=== PATIENT | male | born 1945 | race Caucasian/White ===

== ENCOUNTER 2018-12-23 17:58 | Inpatient (IN) | payer OTHER ==
[2018-12-24] MEDS: PIPER-TAZO 3.375 GM IV (PMX) 100 ML IVPB (00:15)
[2018-12-24 00:16] LABS: ADD MAN DIFF? NO
[2018-12-24 00:17] LABS: BASOPHIL # 0.1 10^3/ul (0.0-0.1); BASOPHILS % 0.6 % (0.0-2.0); EOSINOPHILS % 12.3 % (0.0-7.0); HEMOGLOBIN 12.1 g/dl (14.0-18.0); LYMPHOCYTES # 2.1 10^3/ul (0.8-2.9); LYMPHOCYTES % 25.1 % (15.0-51.0); MEAN CORPUSCULAR HEMOGLOBIN 26.8 pg (29.0-33.0); MEAN CORPUSCULAR HGB CONC 32.7 g/dl (32.0-37.0); MEAN PLATELET VOLUME 10.8 fl (7.4-10.4); MONOCYTE # 0.6 10^3/ul (0.3-0.9); MONOCYTES % 6.6 % (0.0-11.0); NEUTROPHIL # 4.6 10^3/ul (1.6-7.5); PLATELET COUNT 176 10^3/UL (140-415); RED BLOOD COUNT 4.51 10^6/ul (4.70-6.10); RED CELL DISTRIBUTION WIDTH 13.2 % (11.5-14.5)
[2018-12-24 00:17] LABS: WHITE BLOOD COUNT 8.4 10^3/ul (4.8-10.8)
[2018-12-24] MEDS: VANCOMYCIN 1 GM (PMX) 250 ML IVPB (00:40)
[2018-12-24 00:45] LABS: INR 0.94; PROTIME 12.7 Sec (11.9-14.9)
[2018-12-24 01:02] LABS: ALANINE AMINOTRANSFERASE 22 IU/L (13-69); ALBUMIN 4.3 g/dl (3.3-4.9); ALBUMIN/GLOBULIN RATIO 1.43; ALKALINE PHOSPHATASE 80 IU/L (42-121); ANION GAP 13 (5-13); ASPARTATE AMINO TRANSFERASE 25 IU/L (15-46); BILIRUBIN,INDIRECT 0.2 mg/dl (0-1.1); BILIRUBIN,TOTAL 0.2 mg/dl (0.2-1.3); BLOOD UREA NITROGEN 10 mg/dl (7-20); CALCIUM 9.3 mg/dl (8.4-10.2); CARBON DIOXIDE 23 mmol/L (21-31); CHLORIDE 100 mmol/L (97-110); CREATININE 0.66 mg/dl (0.61-1.24); GLUCOSE 164 mg/dl (70-220); POTASSIUM 4.1 mmol/L (3.5-5.1); SODIUM 136 mmol/L (135-144); TOTAL PROTEIN 7.3 g/dl (6.1-8.1)
[2018-12-24] MEDS ORDERED: ONDANSETRON 4 MG INJ IV ×2 (02:00→04:00)
[2018-12-24] MEDS ORDERED: ACETAMINOPHEN 325 MG TAB PO (02:00)
[2018-12-24] MEDS: morphine 4 MG/ML VIAL IV (02:43)
[2018-12-24] MEDS ORDERED: NACL 0.9% 3 ML SYG IV (04:00)
[2018-12-24] MEDS ORDERED: DEXTROSE 50% 50 ML SYRINGE IV ×2 (04:00)
[2018-12-24] MEDS ORDERED: GLUCOSE GEL 15 GRAM TUBE PO ×2 (04:00)
[2018-12-24] MEDS ORDERED: GLUCAGON 1 MG INJ IM (04:00)
[2018-12-24] MEDS ORDERED: GLUCOSE GEL 15 GRAM TUBE BUCCAL (04:00)
[2018-12-24] MEDS ORDERED: PENDING SANTYL ORDER FOR WOUND CARE XX (05:30)
[2018-12-24 06:39] LABS: ADD MAN DIFF? NO
[2018-12-24 06:44] LABS: WHITE BLOOD COUNT 8.2 10^3/ul (4.8-10.8)
[2018-12-24 06:44] LABS: BASOPHILS % 0.5 % (0.0-2.0); EOSINOPHILS # 0.9 10^3/ul (0.0-0.5); EOSINOPHILS % 11.1 % (0.0-7.0); HEMATOCRIT 38.5 % (42.0-52.0); HEMOGLOBIN 12.5 g/dl (14.0-18.0); LYMPHOCYTES # 1.8 10^3/ul (0.8-2.9); LYMPHOCYTES % 21.4 % (15.0-51.0); MEAN CORPUSCULAR HEMOGLOBIN 26.6 pg (29.0-33.0); MEAN CORPUSCULAR HGB CONC 32.5 g/dl (32.0-37.0); MEAN CORPUSCULAR VOLUME 81.9 fl (82.0-101.0); MEAN PLATELET VOLUME 11.3 fl (7.4-10.4); MONOCYTE # 0.5 10^3/ul (0.3-0.9); MONOCYTES % 6.4 % (0.0-11.0); NEUTROPHILS % 60.2 % (39.0-77.0); PLATELET COUNT 190 10^3/UL (140-415); RED CELL DISTRIBUTION WIDTH 13.3 % (11.5-14.5)
[2018-12-24 07:02] LABS: ALANINE AMINOTRANSFERASE 20 IU/L (13-69); ALBUMIN 4.1 g/dl (3.3-4.9); ALBUMIN/GLOBULIN RATIO 1.41; ALKALINE PHOSPHATASE 78 IU/L (42-121); ANION GAP 11 (5-13); ASPARTATE AMINO TRANSFERASE 21 IU/L (15-46); BILIRUBIN,INDIRECT 0.2 mg/dl (0-1.1); BILIRUBIN,TOTAL 0.2 mg/dl (0.2-1.3); BLOOD UREA NITROGEN 10 mg/dl (7-20); CALCIUM 9.5 mg/dl (8.4-10.2); CARBON DIOXIDE 25 mmol/L (21-31); CHLORIDE 106 mmol/L (97-110); CHOL/HDL RATIO 2.2 RATIO; CHOLESTEROL 71 mg/dl (100-200); CREATININE 0.63 mg/dl (0.61-1.24); GLUCOSE 67 mg/dl (70-220); HDL CHOLESTEROL 32 mg/dl (31-75); LDL CHOLESTEROL,CALCULATED 17 mg/dl; MAGNESIUM 1.9 mg/dl (1.7-2.5); PHOSPHORUS 4.3 mg/dl (2.5-4.9); POTASSIUM 4.2 mmol/L (3.5-5.1); SODIUM 142 mmol/L (135-144); TRIGLYCERIDES 111 mg/dl (0-149)
[2018-12-24 07:23] LABS: HEMOGLOBIN A1C 6.7 % (0-5.9)
[2018-12-24] MEDS: INSULIN ASPART [NOVOLOG] 3 ML PEN SC ×4 (08:00→20:29)
[2018-12-24] MEDS: HEPARIN 5,000 UNIT/1 ML VIAL SC ×2 (08:09→20:29)
[2018-12-24] MEDS: HYDROCODONE/APAP (5/325) TAB PO ×2 (17:51→22:01)
[2018-12-24] MEDS ORDERED: ATORVASTATIN 20 MG TAB (19:50)
[2018-12-24] MEDS: INSULIN GLARGINE [LANTus] (100 UNITS/ML) SYG SC (20:29)
[2018-12-24] MEDS: ATORVASTATIN 20 MG TAB PO (20:30)
[2018-12-25] MEDS: ACCU-CHEK XX (02:15)
[2018-12-25] MEDS: ACETAMINOPHEN 325 MG TAB PO ×3 (02:16→15:31)
[2018-12-25] MEDS: HYDROCODONE/APAP (5/325) TAB PO ×3 (05:19→20:11)
[2018-12-25 06:20] LABS: ADD MAN DIFF? NO
[2018-12-25 06:26] LABS: WHITE BLOOD COUNT 6.5 10^3/ul (4.8-10.8)
[2018-12-25 06:26] LABS: BASOPHILS % 0.6 % (0.0-2.0); EOSINOPHILS # 0.9 10^3/ul (0.0-0.5); HEMATOCRIT 35.9 % (42.0-52.0); HEMOGLOBIN 11.9 g/dl (14.0-18.0); LYMPHOCYTES # 2.2 10^3/ul (0.8-2.9); MEAN CORPUSCULAR HGB CONC 33.1 g/dl (32.0-37.0); MEAN CORPUSCULAR VOLUME 81.4 fl (82.0-101.0); MEAN PLATELET VOLUME 11.4 fl (7.4-10.4); MONOCYTE # 0.6 10^3/ul (0.3-0.9); MONOCYTES % 8.6 % (0.0-11.0); NEUTROPHIL # 2.8 10^3/ul (1.6-7.5); NEUTROPHILS % 43.3 % (39.0-77.0); PLATELET COUNT 188 10^3/UL (140-415); RED BLOOD COUNT 4.41 10^6/ul (4.70-6.10); RED CELL DISTRIBUTION WIDTH 13.2 % (11.5-14.5)
[2018-12-25 06:55] LABS: ANION GAP 11 (5-13); BLOOD UREA NITROGEN 11 mg/dl (7-20); CALCIUM 9.4 mg/dl (8.4-10.2); CARBON DIOXIDE 25 mmol/L (21-31); CHLORIDE 102 mmol/L (97-110); CREATININE 0.63 mg/dl (0.61-1.24); GLUCOSE 94 mg/dl (70-220); MAGNESIUM 1.9 mg/dl (1.7-2.5); PHOSPHORUS 5.3 mg/dl (2.5-4.9); POTASSIUM 4.3 mmol/L (3.5-5.1); SODIUM 138 mmol/L (135-144)
[2018-12-25] MEDS: INSULIN ASPART [NOVOLOG] 3 ML PEN SC ×4 (08:00→20:35)
[2018-12-25] MEDS: HEPARIN 5,000 UNIT/1 ML VIAL SC ×2 (08:52→20:36)
[2018-12-25] MEDS ORDERED: VANCOMYCIN IV PER PHARMACY XX (17:00)
[2018-12-25] MEDS: PIPER-TAZO 3.375 GM IV (PMX) 100 ML IVPB ×2 (17:17→23:32)
[2018-12-25] MEDS: VANCOMYCIN HCL 1.25 GM in SOD CHLORIDE 0.9% 250 ML IVPB (18:34)
[2018-12-25] MEDS: INSULIN GLARGINE [LANTus] (100 UNITS/ML) SYG SC (20:35)
[2018-12-25] MEDS: ATORVASTATIN 20 MG TAB PO (20:39)
[2018-12-26] MEDS: ACCU-CHEK XX (02:00)
[2018-12-26] MEDS: HYDROCODONE/APAP (5/325) TAB PO (03:59)
[2018-12-26] MEDS: PIPER-TAZO 3.375 GM IV (PMX) 100 ML IVPB ×2 (05:57→12:24)
[2018-12-26 06:27] LABS: ADD MAN DIFF? NO
[2018-12-26] MEDS: morphine 4 MG/ML VIAL IV (06:29)
[2018-12-26 06:41] LABS: BASOPHIL # 0.1 10^3/ul (0.0-0.1); BASOPHILS % 0.7 % (0.0-2.0); EOSINOPHILS # 0.9 10^3/ul (0.0-0.5); EOSINOPHILS % 12.1 % (0.0-7.0); HEMATOCRIT 36.9 % (42.0-52.0); LYMPHOCYTES # 2.4 10^3/ul (0.8-2.9); LYMPHOCYTES % 34.5 % (15.0-51.0); MEAN CORPUSCULAR HEMOGLOBIN 26.7 pg (29.0-33.0); MEAN CORPUSCULAR HGB CONC 32.5 g/dl (32.0-37.0); MEAN CORPUSCULAR VOLUME 82.2 fl (82.0-101.0); MEAN PLATELET VOLUME 10.9 fl (7.4-10.4); MONOCYTE # 0.6 10^3/ul (0.3-0.9); MONOCYTES % 8.6 % (0.0-11.0); NEUTROPHIL # 3.1 10^3/ul (1.6-7.5); PLATELET COUNT 186 10^3/UL (140-415); RED BLOOD COUNT 4.49 10^6/ul (4.70-6.10); RED CELL DISTRIBUTION WIDTH 13.2 % (11.5-14.5)
[2018-12-26 07:10] LABS: PHOSPHORUS 5.2 mg/dl (2.5-4.9)
[2018-12-26 07:15] LABS: ANION GAP 8 (5-13); BLOOD UREA NITROGEN 11 mg/dl (7-20); CALCIUM 9.5 mg/dl (8.4-10.2); CARBON DIOXIDE 27 mmol/L (21-31); CHLORIDE 106 mmol/L (97-110); CREATININE 0.75 mg/dl (0.61-1.24); GLUCOSE 127 mg/dl (70-220); POTASSIUM 4.7 mmol/L (3.5-5.1); SODIUM 141 mmol/L (135-144)
[2018-12-26] MEDS: INSULIN ASPART [NOVOLOG] 3 ML PEN SC ×2 (08:00→12:28)
[2018-12-26] MEDS: HEPARIN 5,000 UNIT/1 ML VIAL SC (08:33)
[2018-12-26] MEDS ORDERED: VANCOMYCIN 1 GM 250 ML IVPB (12:00)
== END 2018-12-26 14:26 | disposition home or self-care (01) | DRG 300 ==
LOC: PP2 12-24 02:00 → E/R 17:58
DX: E11.52 Type 2 diabetes mellitus with diabetic peripheral angiopathy with gangrene (principal); I70.261 Atherosclerosis of native arteries of extremities with gangrene, right leg; L03.031 Cellulitis of right toe; I10 Essential (primary) hypertension; E78.5 Hyperlipidemia, unspecified; Z79.4 Long term (current) use of insulin
CPT/HCPCS: 36415; 73718; 80048; 80053; 80061; 82962; 83036; 83735; 84100; 85025; 85610; 85730; 87040-91; 96374; 96375; 99285-25

== ENCOUNTER 2019-01-01 23:40 | Inpatient (IN) | payer OTHER ==
[2019-01-02 02:11] LABS: ADD MAN DIFF? NO
[2019-01-02 02:13] LABS: WHITE BLOOD COUNT 9.2 10^3/ul (4.8-10.8)
[2019-01-02 02:13] LABS: BASOPHILS % 0.3 % (0.0-2.0); EOSINOPHILS # 0.6 10^3/ul (0.0-0.5); EOSINOPHILS % 6.4 % (0.0-7.0); HEMATOCRIT 35.6 % (42.0-52.0); HEMOGLOBIN 11.8 g/dl (14.0-18.0); LYMPHOCYTES % 21.2 % (15.0-51.0); MEAN CORPUSCULAR HEMOGLOBIN 26.8 pg (29.0-33.0); MEAN CORPUSCULAR HGB CONC 33.1 g/dl (32.0-37.0); MEAN CORPUSCULAR VOLUME 80.7 fl (82.0-101.0); MEAN PLATELET VOLUME 10.3 fl (7.4-10.4); MONOCYTE # 0.7 10^3/ul (0.3-0.9); MONOCYTES % 7.2 % (0.0-11.0); NEUTROPHIL # 5.9 10^3/ul (1.6-7.5); NEUTROPHILS % 64.5 % (39.0-77.0); PLATELET COUNT 169 10^3/UL (140-415); RED BLOOD COUNT 4.41 10^6/ul (4.70-6.10); RED CELL DISTRIBUTION WIDTH 12.9 % (11.5-14.5)
[2019-01-02] MEDS: HYDROmorphONE 1 MG/ML SYG IV (02:15)
[2019-01-02 02:33] LABS: ANION GAP 12 (5-13); BLOOD UREA NITROGEN 11 mg/dl (7-20); CALCIUM 9.4 mg/dl (8.4-10.2); CARBON DIOXIDE 22 mmol/L (21-31); CHLORIDE 102 mmol/L (97-110); CREATININE 0.81 mg/dl (0.61-1.24); GLUCOSE 133 mg/dl (70-220); POTASSIUM 4.6 mmol/L (3.5-5.1); SODIUM 136 mmol/L (135-144)
[2019-01-02 02:34] LABS: INR 0.99; PROTIME 13.2 Sec (11.9-14.9)
[2019-01-02 02:35] LABS: PARTIAL THROMBOPLASTIN TIME 25.6 Sec (23.0-35.0)
[2019-01-02] MEDS: SOD CHLORIDE 0.9% 100 ML (03:41)
[2019-01-02] MEDS: IOHEXOL 100 ML (03:41)
[2019-01-02] MEDS ORDERED: ACETAMINOPHEN 325 MG TAB PO (05:30)
[2019-01-02] MEDS ORDERED: ONDANSETRON 4 MG INJ IV ×2 (05:30→07:00)
[2019-01-02] MEDS ORDERED: NACL 0.9% 3 ML SYG IV (07:00)
[2019-01-02] MEDS ORDERED: VANCOMYCIN IV PER PHARMACY XX (07:00)
[2019-01-02] MEDS ORDERED: DEXTROSE 50% 50 ML SYRINGE IV ×2 (08:00)
[2019-01-02] MEDS ORDERED: GLUCOSE GEL 15 GRAM TUBE PO ×2 (08:00)
[2019-01-02] MEDS ORDERED: GLUCAGON 1 MG INJ IM (08:00)
[2019-01-02] MEDS ORDERED: GLUCOSE GEL 15 GRAM TUBE BUCCAL (08:00)
[2019-01-02] MEDS: KETOROLAC 30 MG INJ IV ×2 (09:33→15:26)
[2019-01-02] MEDS: BENAZEPRIL 20 MG TAB PO (09:35)
[2019-01-02] MEDS: HYDROCODONE/APAP (5/325) TAB PO ×2 (09:36→15:27)
[2019-01-02] MEDS: ASPIRIN 81 MG TAB PO (09:37)
[2019-01-02] MEDS: LINAGLIPTIN 5 MG TABLET PO (09:37)
[2019-01-02] MEDS: metFORMIN 500 MG TAB PO ×2 (09:37→17:56)
[2019-01-02] MEDS: CLOPIDOGREL 75 MG TAB PO (09:38)
[2019-01-02] MEDS: HEPARIN 5,000 UNIT/1 ML VIAL SC ×2 (09:39→21:05)
[2019-01-02 10:36] LABS: HEPATITIS B SURFACE ANTIGEN NEGATIVE (NEGATIVE)
[2019-01-02] MEDS: VANCOMYCIN HCL 1.25 GM in SOD CHLORIDE 0.9% 250 ML IVPB (10:36)
[2019-01-02 10:54] LABS: HEPATITIS C VIRAL ANTIBODY NEGATIVE (NEGATIVE)
[2019-01-02] MEDS: CILOSTAZOL 100 MG TAB PO ×2 (11:53→21:03)
[2019-01-02] MEDS: PENTOXIFYLLINE (SR) 400 MG TAB PO ×2 (13:51→21:03)
[2019-01-02] MEDS: ACCU-CHEK XX ×3 (13:52→20:55)
[2019-01-02 15:23] LABS: RAPID PLASMA REAGIN NONREACTIVE (NR)
[2019-01-02] MEDS ORDERED: ATORVASTATIN 20 MG TAB PO (21:00)
[2019-01-02] MEDS: ACETYLCYSTEINE 600 MG CAP PO (21:02)
[2019-01-02] MEDS: ATORVASTATIN 80 MG TAB PO (21:02)
[2019-01-02] MEDS: VANCOMYCIN 500 MG (PMX) 100 ML IVPB (23:09)
[2019-01-03 05:10] LABS: ADD MAN DIFF? NO
[2019-01-03 05:14] LABS: WHITE BLOOD COUNT 8.4 10^3/ul (4.8-10.8)
[2019-01-03 05:14] LABS: BASOPHILS % 0.5 % (0.0-2.0); EOSINOPHILS # 0.8 10^3/ul (0.0-0.5); HEMATOCRIT 32.9 % (42.0-52.0); HEMOGLOBIN 10.9 g/dl (14.0-18.0); LYMPHOCYTES # 1.9 10^3/ul (0.8-2.9); LYMPHOCYTES % 22.2 % (15.0-51.0); MEAN CORPUSCULAR HEMOGLOBIN 26.7 pg (29.0-33.0); MEAN CORPUSCULAR HGB CONC 33.1 g/dl (32.0-37.0); MEAN CORPUSCULAR VOLUME 80.4 fl (82.0-101.0); MONOCYTE # 0.6 10^3/ul (0.3-0.9); MONOCYTES % 6.6 % (0.0-11.0); NEUTROPHIL # 5.1 10^3/ul (1.6-7.5); NEUTROPHILS % 61.2 % (39.0-77.0); PLATELET COUNT 160 10^3/UL (140-415); RED BLOOD COUNT 4.09 10^6/ul (4.70-6.10); RED CELL DISTRIBUTION WIDTH 13.1 % (11.5-14.5)
[2019-01-03 06:30] LABS: ALANINE AMINOTRANSFERASE 27 IU/L (13-69); ALBUMIN 3.3 g/dl (3.3-4.9); ALBUMIN/GLOBULIN RATIO 1.13; ALKALINE PHOSPHATASE 72 IU/L (42-121); ANION GAP 11 (5-13); ASPARTATE AMINO TRANSFERASE 21 IU/L (15-46); BILIRUBIN,INDIRECT 0.3 mg/dl (0-1.1); BILIRUBIN,TOTAL 0.3 mg/dl (0.2-1.3); BLOOD UREA NITROGEN 14 mg/dl (7-20); CALCIUM 8.9 mg/dl (8.4-10.2); CARBON DIOXIDE 21 mmol/L (21-31); CHLORIDE 100 mmol/L (97-110); CREATININE 0.66 mg/dl (0.61-1.24); GLUCOSE 132 mg/dl (70-220); MAGNESIUM 1.5 mg/dl (1.7-2.5); PHOSPHORUS 4.4 mg/dl (2.5-4.9); POTASSIUM 4.3 mmol/L (3.5-5.1); SODIUM 132 mmol/L (135-144); TOTAL PROTEIN 6.2 g/dl (6.1-8.1)
[2019-01-03] MEDS: VANCOMYCIN 500 MG (PMX) 100 ML IVPB ×2 (07:31→19:03)
[2019-01-03 07:46] LABS: HEMOGLOBIN A1C 6.7 % (0-5.9)
[2019-01-03] MEDS: ACCU-CHEK XX ×6 (08:36→20:58)
[2019-01-03] MEDS: HEPARIN 5,000 UNIT/1 ML VIAL SC ×2 (08:38→21:02)
[2019-01-03] MEDS: metFORMIN 500 MG TAB PO (08:39)
[2019-01-03] MEDS: CLOPIDOGREL 75 MG TAB PO (08:41)
[2019-01-03] MEDS: ACETYLCYSTEINE 600 MG CAP PO ×2 (08:41→20:59)
[2019-01-03] MEDS: PENTOXIFYLLINE (SR) 400 MG TAB PO ×3 (08:42→20:59)
[2019-01-03] MEDS: CILOSTAZOL 100 MG TAB PO ×2 (08:42→20:59)
[2019-01-03] MEDS: ASPIRIN 81 MG TAB PO (08:42)
[2019-01-03] MEDS: BENAZEPRIL 20 MG TAB PO (08:43)
[2019-01-03] MEDS: LINAGLIPTIN 5 MG TABLET PO (08:43)
[2019-01-03] MEDS: ACETAMINOPHEN 325 MG TAB PO (09:00)
[2019-01-03] MEDS: DEXTROSE 5%-0.45% NACL 1,000 ML IV ×2 (15:30→23:27)
[2019-01-03] MEDS: ATORVASTATIN 80 MG TAB PO (20:59)
[2019-01-03] MEDS: DOCUSATE SODIUM 100 MG CAP PO (20:59)
[2019-01-03] MEDS: HYDROCODONE/APAP (5/325) TAB PO (21:00)
[2019-01-03] MEDS: morphine 4 MG/ML VIAL IV (23:32)
[2019-01-04] MEDS: DEXTROSE 5%-0.45% NACL 1,000 ML IV ×3 (01:30→20:13)
[2019-01-04] MEDS: VANCOMYCIN 500 MG (PMX) 100 ML IVPB (08:01)
[2019-01-04] MEDS: ACCU-CHEK XX ×6 (08:02→20:02)
[2019-01-04] MEDS: ASPIRIN 81 MG TAB PO (08:04)
[2019-01-04] MEDS: HEPARIN 5,000 UNIT/1 ML VIAL SC ×2 (08:05→20:13)
[2019-01-04] MEDS: CLOPIDOGREL 75 MG TAB PO (08:05)
[2019-01-04] MEDS: PENTOXIFYLLINE (SR) 400 MG TAB PO ×3 (09:00→20:13)
[2019-01-04] MEDS: DOCUSATE SODIUM 100 MG CAP PO ×2 (09:00→20:13)
[2019-01-04] MEDS: ACETYLCYSTEINE 600 MG CAP PO ×2 (09:00→20:13)
[2019-01-04] MEDS: CILOSTAZOL 100 MG TAB PO ×2 (10:52→20:13)
[2019-01-04] MEDS ORDERED: LIDOCAINE 1% (MDV) 20 ML INJ (11:13)
[2019-01-04] MEDS ORDERED: IODIXANOL LOCM 100 ML BTL (11:13)
[2019-01-04] MEDS ORDERED: FENTAnyl 50 MCG/ML VIAL (11:22)
[2019-01-04] MEDS ORDERED: MIDAZOLAM 1 MG/ML 2 ML INJ (11:22)
[2019-01-04] MEDS: SOD CHLORIDE 0.9% 1,000 ML IV (12:40)
[2019-01-04] MEDS ORDERED: HEPARIN 1000 UNITS/ML 10 ML INJ (12:47)
[2019-01-04] MEDS: DAKINS 0.0125%(1/40) 473 ML SOLUTION TP (16:56)
[2019-01-04 19:05] LABS: VANCOMYCIN,TROUGH 6.6 ug/ml (10.0-20.0)
[2019-01-04] MEDS: VANCOMYCIN 1 GM (PMX) 250 ML IVPB (19:41)
[2019-01-04] MEDS: ATORVASTATIN 80 MG TAB PO (20:13)
[2019-01-05] MEDS: morphine 4 MG/ML VIAL IV ×3 (02:50→11:47)
[2019-01-05] MEDS: ACCU-CHEK XX ×4 (07:20→13:40)
[2019-01-05] MEDS: DEXTROSE 5%-0.45% NACL 1,000 ML IV (07:30)
[2019-01-05] MEDS: VANCOMYCIN 750 MG (PMX) 250 ML IVPB (08:31)
[2019-01-05] MEDS: ACETYLCYSTEINE 600 MG CAP PO (08:32)
[2019-01-05] MEDS: PENTOXIFYLLINE (SR) 400 MG TAB PO ×2 (08:32→13:05)
[2019-01-05] MEDS: ASPIRIN 81 MG TAB PO (08:32)
[2019-01-05] MEDS: CLOPIDOGREL 75 MG TAB PO (08:32)
[2019-01-05] MEDS: DAKINS 0.0125%(1/40) 473 ML SOLUTION TP (08:33)
[2019-01-05] MEDS: HEPARIN 5,000 UNIT/1 ML VIAL SC (08:39)
[2019-01-05] MEDS: DOCUSATE SODIUM 100 MG CAP PO (09:44)
[2019-01-05] MEDS: CILOSTAZOL 100 MG TAB PO (09:44)
[2019-01-05] MEDS: HYDROCODONE/APAP (5/325) TAB PO (09:45)
[2019-01-05] MEDS: INSULIN GLARGINE [LANTus] (100 UNITS/ML) SYG SC (13:04)
[2019-01-05] MEDS: INSULIN ASPART [NOVOLOG] 3 ML PEN SC (13:05)
== END 2019-01-05 17:10 | disposition home health service (06) | DRG 254 ==
LOC: E/R 23:40 → MS1 01-02 05:28
PROC: 047P3ZZ Dilation of Right Anterior Tibial Artery, Percutaneous Approach (ICD-10-PCS; principal; 2019-01-04 10:56)
PROC: 047T3ZZ Dilation of Right Peroneal Artery, Percutaneous Approach (ICD-10-PCS; 2019-01-04 10:56)
PROC: B41DYZZ Fluoroscopy of Aorta and Bilateral Lower Extremity Arteries using Other Contrast (ICD-10-PCS; 2019-01-04 10:56)
DX: E11.52 Type 2 diabetes mellitus with diabetic peripheral angiopathy with gangrene (principal); I70.228 Atherosclerosis of native arteries of extremities with rest pain, other extremity; L03.031 Cellulitis of right toe; I10 Essential (primary) hypertension; D63.8 Anemia in other chronic diseases classified elsewhere; E78.5 Hyperlipidemia, unspecified; E11.42 Type 2 diabetes mellitus with diabetic polyneuropathy; E11.621 Type 2 diabetes mellitus with foot ulcer; L97.519 Non-pressure chronic ulcer of other part of right foot with unspecified severity; Z79.4 Long term (current) use of insulin; Z79.82 Long term (current) use of aspirin
CPT/HCPCS: 36415; 73706; 75630; 80048; 80053; 80202; 82962; 83036; 83735; 84100; 85025; 85610; 85730; 86592; 86803; 87081; 87340; 96374; 99285-25

== ENCOUNTER 2019-04-10 23:40 | Inpatient (IN) | payer OTHER ==
[2019-04-11 00:11] LABS: ADD MAN DIFF? NO
[2019-04-11 00:21] LABS: WHITE BLOOD COUNT 7.9 10^3/ul (4.8-10.8)
[2019-04-11 00:21] LABS: BASOPHILS % 0.4 % (0.0-2.0); EOSINOPHILS # 1.4 10^3/ul (0.0-0.5); EOSINOPHILS % 18.3 % (0.0-7.0); HEMATOCRIT 35.3 % (42.0-52.0); HEMOGLOBIN 11.3 g/dl (14.0-18.0); LYMPHOCYTES # 2.3 10^3/ul (0.8-2.9); LYMPHOCYTES % 28.7 % (15.0-51.0); MEAN CORPUSCULAR HEMOGLOBIN 25.7 pg (29.0-33.0); MEAN CORPUSCULAR VOLUME 80.2 fl (82.0-101.0); MEAN PLATELET VOLUME 9.1 fl (7.4-10.4); MONOCYTE # 0.6 10^3/ul (0.3-0.9); MONOCYTES % 7.7 % (0.0-11.0); NEUTROPHIL # 3.5 10^3/ul (1.6-7.5); NEUTROPHILS % 44.4 % (39.0-77.0); PLATELET COUNT 196 10^3/UL (140-415); RED CELL DISTRIBUTION WIDTH 15.1 % (11.5-14.5)
[2019-04-11 00:39] LABS: ANION GAP 9 (5-13); BLOOD UREA NITROGEN 7 mg/dl (7-20); CALCIUM 9.7 mg/dl (8.4-10.2); CARBON DIOXIDE 24 mmol/L (21-31); CHLORIDE 102 mmol/L (97-110); CREATININE 0.67 mg/dl (0.61-1.24); GLUCOSE 60 mg/dl (70-220); POTASSIUM 4.1 mmol/L (3.5-5.1); SODIUM 135 mmol/L (135-144)
[2019-04-11] MEDS: morphine 4 MG/ML VIAL IV (00:39)
[2019-04-11] MEDS: ONDANSETRON 4 MG INJ IV (00:39)
[2019-04-11] MEDS: SODIUM CHLORIDE 0.9% 1L BAG IV* (00:41)
[2019-04-11] MEDS: CLINDAMYCIN 900 MG/D5W (PMX) 50 ML IVPB (00:42)
[2019-04-11 00:45] LABS: INR 1.02; PROTIME 13.5 Sec (11.9-14.9); PT RATIO 1.1
[2019-04-11 00:46] LABS: PARTIAL THROMBOPLASTIN TIME 27.2 Sec (23.0-35.0)
[2019-04-11] MEDS: CEFEPIME 2GM/50 ML (PMX) 50 ML IVPB (01:04)
[2019-04-11] MEDS: VANCOMYCIN 1 GM (PMX) 250 ML IVPB (01:27)
[2019-04-11 01:32] LABS: C-REACTIVE PROTEIN 0.7 mg/dl (0.0-0.9)
[2019-04-11 01:35] LABS: ERYTHROCYTE SEDIMENTATION RATE 7 mm/Hr (0-20)
[2019-04-11] MEDS ORDERED: ACETAMINOPHEN 325 MG TAB PO ×2 (02:00→02:30)
[2019-04-11] MEDS ORDERED: ONDANSETRON 4 MG INJ IV ×2 (02:00→02:30)
[2019-04-11] MEDS ORDERED: GLUCAGON 1 MG INJ IM (02:30)
[2019-04-11] MEDS ORDERED: DOCUSATE SODIUM 100 MG CAP PO (02:30)
[2019-04-11] MEDS ORDERED: NACL 0.9% 3 ML SYG IV (02:30)
[2019-04-11] MEDS ORDERED: GLUCOSE GEL 15 GRAM TUBE PO ×2 (02:30)
[2019-04-11] MEDS ORDERED: GLUCOSE GEL 15 GRAM TUBE BUCCAL (02:30)
[2019-04-11] MEDS ORDERED: BISACODYL (EC) 5 MG TAB PO (02:30)
[2019-04-11] MEDS ORDERED: VANCOMYCIN IV PER PHARMACY XX (02:30)
[2019-04-11] MEDS ORDERED: DEXTROSE 50% 50 ML SYRINGE IV (02:30)
[2019-04-11 02:49] LABS: LACTIC ACID 1.5 mmol/L (0.5-2.0)
[2019-04-11] MEDS: SOD CHLORIDE 0.9% 1,000 ML IV ×3 (03:29→23:31)
[2019-04-11] MEDS: morphine 2 MG INJ IV ×4 (03:33→19:52)
[2019-04-11] MEDS: INSULIN ASPART [NOVOLOG] 3 ML PEN SC ×8 (05:26→21:00)
[2019-04-11] MEDS: PIPER-TAZO 3.375 GM IV (PMX) 100 ML IVPB ×2 (05:54→12:56)
[2019-04-11] MEDS ORDERED: VANCOMYCIN 500 MG (PMX) 100 ML IVPB (06:00)
[2019-04-11 06:23] LABS: ADD MAN DIFF? NO
[2019-04-11 06:27] LABS: BASOPHILS % 0.5 % (0.0-2.0); EOSINOPHILS # 0.9 10^3/ul (0.0-0.5); EOSINOPHILS % 13.8 % (0.0-7.0); HEMATOCRIT 33.1 % (42.0-52.0); HEMOGLOBIN 10.4 g/dl (14.0-18.0); LYMPHOCYTES # 1.2 10^3/ul (0.8-2.9); LYMPHOCYTES % 18.7 % (15.0-51.0); MEAN CORPUSCULAR HEMOGLOBIN 26.1 pg (29.0-33.0); MEAN CORPUSCULAR HGB CONC 31.4 g/dl (32.0-37.0); MEAN CORPUSCULAR VOLUME 83.2 fl (82.0-101.0); MEAN PLATELET VOLUME 10.4 fl (7.4-10.4); MONOCYTE # 0.4 10^3/ul (0.3-0.9); MONOCYTES % 6.6 % (0.0-11.0); NEUTROPHIL # 3.8 10^3/ul (1.6-7.5); NEUTROPHILS % 60.1 % (39.0-77.0); PLATELET COUNT 191 10^3/UL (140-415); RED BLOOD COUNT 3.98 10^6/ul (4.70-6.10); RED CELL DISTRIBUTION WIDTH 15.2 % (11.5-14.5)
[2019-04-11 06:27] LABS: WHITE BLOOD COUNT 6.3 10^3/ul (4.8-10.8)
[2019-04-11 06:54] LABS: CHOLESTEROL 68 mg/dl (100-200)
[2019-04-11 06:54] LABS: CHOL/HDL RATIO 2.6 RATIO; HDL CHOLESTEROL 26 mg/dl (31-75); LDL CHOLESTEROL,CALCULATED 23 mg/dl; TRIGLYCERIDES 93 mg/dl (0-149)
[2019-04-11 06:56] LABS: LACTIC ACID 1.5 mmol/L (0.5-2.0)
[2019-04-11 07:00] LABS: ALANINE AMINOTRANSFERASE 23 IU/L (13-69); ALBUMIN 3.4 g/dl (3.3-4.9); ALBUMIN/GLOBULIN RATIO 1.25; ALKALINE PHOSPHATASE 68 IU/L (42-121); ANION GAP 6 (5-13); ASPARTATE AMINO TRANSFERASE 22 IU/L (15-46); BILIRUBIN,INDIRECT 0.3 mg/dl (0-1.1); BILIRUBIN,TOTAL 0.3 mg/dl (0.2-1.3); BLOOD UREA NITROGEN 7 mg/dl (7-20); CALCIUM 8.4 mg/dl (8.4-10.2); CARBON DIOXIDE 24 mmol/L (21-31); CHLORIDE 109 mmol/L (97-110); CREATININE 0.66 mg/dl (0.61-1.24); GLUCOSE 152 mg/dl (70-220); POTASSIUM 4.3 mmol/L (3.5-5.1); SODIUM 139 mmol/L (135-144); TOTAL PROTEIN 6.1 g/dl (6.1-8.1)
[2019-04-11 07:17] LABS: HEMOGLOBIN A1C 6.5 % (0-5.9)
[2019-04-11 07:18] LABS: THYROID STIMULATING HORMONE 0.981 MIU/L (0.465-4.680)
[2019-04-11 07:53] LABS: MAGNESIUM 1.6 mg/dl (1.7-2.5)
[2019-04-11] MEDS: BENAZEPRIL 20 MG TAB PO (08:53)
[2019-04-11] MEDS: DEXTROSE 50% 50 ML SYRINGE IV (09:17)
[2019-04-11] MEDS: INSULIN GLARGINE [LANTus] (100 UNITS/ML) SYG SC (10:09)
[2019-04-11] MEDS: MAGNESIUM SULFATE 2 GM/50 ML 50 ML IVPB (11:04)
[2019-04-11] MEDS: VANCOMYCIN 750 MG (PMX) 250 ML IVPB ×2 (13:22→23:32)
[2019-04-11] MEDS: PREGABALIN 50 MG CAP PO ×2 (13:32→20:09)
[2019-04-11] MEDS: hydrALAzine 20 MG INJ IV (15:33)
[2019-04-11] MEDS: HYDROCODONE/APAP (7.5/325) TAB PO (15:37)
[2019-04-11] MEDS: LEVOFLOXACIN 500MG/D5W (PMX) 100 ML IVPB (16:16)
[2019-04-11] MEDS: LACTOBACILLUS RHAMNOSUS CAP PO (20:09)
[2019-04-11] MEDS: ATORVASTATIN 20 MG TAB PO (20:09)
[2019-04-11] MEDS: POVIDONE IODINE 10% 28.4 GM OINT TOP (20:33)
[2019-04-12] MEDS: ACCU-CHEK XX (02:00)
[2019-04-12] MEDS ORDERED: ACCU-CHEK XX (02:00)
[2019-04-12 05:06] LABS: ADD MAN DIFF? NO
[2019-04-12 05:07] LABS: BASOPHILS % 0.4 % (0.0-2.0); EOSINOPHILS # 1.2 10^3/ul (0.0-0.5); EOSINOPHILS % 16.2 % (0.0-7.0); HEMATOCRIT 36.4 % (42.0-52.0); HEMOGLOBIN 11.6 g/dl (14.0-18.0); LYMPHOCYTES # 1.2 10^3/ul (0.8-2.9); LYMPHOCYTES % 16.2 % (15.0-51.0); MEAN CORPUSCULAR HEMOGLOBIN 25.8 pg (29.0-33.0); MEAN CORPUSCULAR HGB CONC 31.9 g/dl (32.0-37.0); MEAN CORPUSCULAR VOLUME 80.9 fl (82.0-101.0); MEAN PLATELET VOLUME 9.4 fl (7.4-10.4); MONOCYTE # 0.5 10^3/ul (0.3-0.9); NEUTROPHIL # 4.4 10^3/ul (1.6-7.5); NEUTROPHILS % 59.9 % (39.0-77.0); PLATELET COUNT 196 10^3/UL (140-415); RED CELL DISTRIBUTION WIDTH 15.5 % (11.5-14.5)
[2019-04-12 05:07] LABS: WHITE BLOOD COUNT 7.4 10^3/ul (4.8-10.8)
[2019-04-12 05:33] LABS: ANION GAP 4 (5-13); BLOOD UREA NITROGEN 9 mg/dl (7-20); CALCIUM 9.2 mg/dl (8.4-10.2); CARBON DIOXIDE 29 mmol/L (21-31); CHLORIDE 106 mmol/L (97-110); CREATININE 0.79 mg/dl (0.61-1.24); GLUCOSE 95 mg/dl (70-220); MAGNESIUM 1.9 mg/dl (1.7-2.5); PHOSPHORUS 4.9 mg/dl (2.5-4.9); POTASSIUM 4.5 mmol/L (3.5-5.1); SODIUM 139 mmol/L (135-144)
[2019-04-12] MEDS ORDERED: VANCOMYCIN 1 GM 250 ML IVPB (06:00)
[2019-04-12] MEDS: INSULIN ASPART [NOVOLOG] 3 ML PEN SC ×6 (07:35→17:18)
[2019-04-12] MEDS: HYDROCODONE/APAP (7.5/325) TAB PO ×2 (07:50→10:19)
[2019-04-12] MEDS: morphine 2 MG INJ IV (07:53)
[2019-04-12] MEDS: PREGABALIN 50 MG CAP PO ×2 (08:15→13:43)
[2019-04-12] MEDS: LACTOBACILLUS RHAMNOSUS CAP PO (08:15)
[2019-04-12] MEDS: DOCUSATE SODIUM 250 MG CAP PO (08:15)
[2019-04-12] MEDS: BENAZEPRIL 20 MG TAB PO (08:16)
[2019-04-12] MEDS: INSULIN GLARGINE [LANTus] (100 UNITS/ML) SYG SC (08:18)
[2019-04-12] MEDS: ENOXAPARIN 40 MG/0.4 ML SYG SC (08:19)
[2019-04-12] MEDS: POVIDONE IODINE 10% 28.4 GM OINT TOP (08:20)
[2019-04-12] MEDS: DAKINS 0.0125%(1/40) 473 ML SOLUTION TP (08:21)
[2019-04-12] MEDS: VANCOMYCIN 750 MG (PMX) 250 ML IVPB (11:41)
[2019-04-12] MEDS: LEVOFLOXACIN 500MG/D5W (PMX) 100 ML IVPB (13:43)
== END 2019-04-12 19:30 | disposition home health service (06) | DRG 300 ==
LOC: E/R 23:40 → MS3 04-11 01:51
PROVIDERS: Family Medicine
DX: E11.52 Type 2 diabetes mellitus with diabetic peripheral angiopathy with gangrene (principal); E11.621 Type 2 diabetes mellitus with foot ulcer; I96 Gangrene, not elsewhere classified; M86.8X6 Other osteomyelitis, lower leg; L03.115 Cellulitis of right lower limb; I10 Essential (primary) hypertension; D63.8 Anemia in other chronic diseases classified elsewhere; E78.5 Hyperlipidemia, unspecified; L97.519 Non-pressure chronic ulcer of other part of right foot with unspecified severity; E11.69 Type 2 diabetes mellitus with other specified complication; E11.40 Type 2 diabetes mellitus with diabetic neuropathy, unspecified
CPT/HCPCS: 36415; 73660; 73718; 80048; 80053; 80061; 82962; 83036; 83605; 83735; 84100; 84443; 85025; 85610; 85651; 85730; 86140; 87040-91; 93922; 93970; 96374; 96375; 99285-25